=== PATIENT | female | born 1995 | race Caucasian/White ===

== ENCOUNTER 2022-04-18 08:43 | Emergency (ER) | payer MEDICAID, OTHER ==
[~2022-04-18] VITALS: Ht 154.9 cm; Wt 80.0 kg
[2022-04-18] MEDS ORDERED: IBUPROFEN 400MG TABLET PO ONE (12:45)
[2022-04-18] MEDS ORDERED: METHOCARBAMOL 500MG TABLET PO ONE (12:45)
[2022-04-18 13:04] VITALS: BP 144/84
[2022-04-18] MEDS ORDERED: IBUP-2028 MT (13:33)
[2022-04-18] MEDS ORDERED: METH-653 MT (13:33)
== END 2022-04-18 13:51 | disposition home or self-care (01) ==
LOC: ER 08:43
DX: M25.512 Pain in left shoulder (principal)
CPT/HCPCS: 73030; 81025; 99283